=== PATIENT | male | born 1970 | race Caucasian/White ===

== ENCOUNTER 2024-07-19 11:37 | Inpatient (IN) | payer BC, SELFPAY ==
[2024-07-16 16:43] VITALS: BP 128/92
[2024-07-16 16:46] LABS: Glucose - Point of Care 529 mg/dl (70-99)
--- NOTE | 2024-07-16 16:46 | ED.GENMED ---
ED Provider Triage
<Vandana Valdovnios, INFORMATION SYSTEMS AUDITOR - Last Filed: 07/16/24 16:51>
-
Patient seen by provider in Triage?: Seen in Triage
Attestation: A medical screening examination has been initiated by a qualified medical provider. Based on the assessment performed at this time, it has been determined that an emergent medical condition may exist and the patient has been informed
that further medical evaluation and possible additional diagnostic testing may be needed.
HPI: 54 yo male w h/o ulcerative colitis, sleep apnea CPAP, gout, HTN, HLD, prediabetic past 10 days, increased urination, polydypsia. Dr. Annette Muñoz saw for first time 2 months ago, had blood work ordered, just got it done 07/12, got results
3 days ago, couldn't get appointment until next week with PCP
GENERAL: Alert , in no apparent distress
EYE: No visual abnormalities.
NECK: Trachea midline
ENT: No visible abnormalities.
LUNGS: No acute respiratory distress
NEUROLOGICAL: Alert and oriented
SKIN: Skin intact. No visible changes.
MUSCULOSKELETAL: Moving extremities normally
PSYCH: Normal and appropriate interaction.
This is a medical evaluation conducted in person to initiate diagnostic evaluation and provide initial therapeutics. Please see further documentation by the treating clinician.
History of Present Illness
<Vandana Valdovinos, INFORMATION SYSTEMS AUDITOR - Last Filed: 07/16/24 16:51>
General
Chief Complaint: Abnormal Lab Value
Time Seen by Provider: 07/16/24 20:49
<Fernie Castillo DO - Last Filed: 07/16/24 23:27>
History of Present Illness
History of Present Illness:
TIME OF INITIAL ENCOUNTER: 8:55 PM
HPI: The patient has had polyuria, polydipsia, blurred vision and had outpatient blood work that showed elevated blood sugar and A1c was reportedly 10.3. Blood work from approximately 1 year ago showed a blood sugar of 100. He had lost weight in
the past but now more recently gained weight.
EXAM:
GENERAL: Well appearing in no distress, elevated BMI
HEENT: Moist oral mucosa
CARDIOVASCULAR: No murmurs, normal heart rate, regular rhythm, No chest wall tenderness
PULMONARY: No respiratory distress, breath sounds are clear and equal
ABDOMEN: Soft with no peritoneal signs, no tenderness
NEUROLOGIC: Excellent strength all extremities, no coordination deficits
PSYCHIATRIC: Appropriate mental status, normal insight and judgement
EXTREMITIES: Nontender, no edema, moves all extremities equally
SKIN: No rash, no lesions
NUMBER AND COMPLEXITY OF PROBLEMS ADDRESSED AT THE ENCOUNTER
� Chronic conditions affecting care: Sleep apnea, has had elevated LFTs in the past
� Acute Exacerbation and/or Progression of Chronic Illness: This is an acute problem
� Differential Diagnosis includes: Diabetes, DKA
AMOUNT AND/OR COMPLEXITY OF DATA TO BE REVIEWED AND ANALYZED
� I performed an independent evaluation of and my interpretation is:
EKG:
CT:
X-rays:
Laboratory Studies: CBC unremarkable, bicarb is 17, glucose is 563, beta hydroxybutyrate is 4.46, VBG reviewed which shows a pH of 7.3
Other:
� Review of other/old records: I reviewed records, the patient had a cholecystectomy in 2019
� Clinical information was obtained by an independent historian: Spoke to at bedside
� Prescriptions/Medications Considered but not given:
� Further testing considered but not performed:
RISK OF COMPLICATIONS AND/OR MORBIDITY OR MORTALITY OF PATIENT MANAGEMENT
� Social determinants of health affecting care: Lives at home
� Discussion with other providers: Hospitalist for admission as I am concerned about at least borderline DKA
� Escalation of care including admission/observation vs risk of discharge considered: The patient's blood sugars over 560 and he has elevated acetone with low bicarb. I have given him IV fluids and also placed him on insulin
drip.
ANY OTHER UPDATES:
11:10 PM: Patient's blood sugar still remains elevated despite receiving IV fluids and insulin. Continuing to monitor.
Past History
<Vandana Valdovinos INFORMATION SYSTEMS AUDITOR - Last Filed: 07/16/24 16:51>
Past History
ED Past Medical History: Other (Ulcerative colitis, elevated liver enzymes)
Social History
Tobacco: Former smoker
Alcohol: None
Phy Exam
<Fernie Castillo DO - Last Filed: 07/16/24 23:27>
Physical Exam
Physical Exam:
See HPI
Course
<Vandana Valdovinos INFORMATION SYSTEMS AUDITOR - Last Filed: 07/16/24 16:51>
Orders/Labs/Results
Orders:
Orders
07/16/24 17:02
B-Hydroxybutyrate Urgent
Complete Blood Count/With Diff Urgent
Comprehensive Metabolic Panel Urgent
Hgba1c [Glycohemoglobin (HgbA1c)] Urgent
07/16/24 19:45
Urinalysis Reflex To Culture Urgent
Date Specimen was Collected: 07/16/24
Time Specimen was Collected: 19:44
07/16/24 20:51
0.9% Sodium Chloride 1000 ml [Nss] 1,000 ml IV BOLUS
07/16/24 21:09
Venous Blood Gas Urgent
%Oxygen/Room Air: ra
07/16/24 22:03
Admit/Transfer Patient As Directed
Co-Sign Provider:
Level of Care: Observation services
Assign to:: IMU- Intermediate Care
Physician / Group: hospitalist
Diagnosis: DKA
Reason for Hospitalization: DKA,
PRN Pain Medication Management As Directed
May give lesser potent ordered pain med per pt: Yes
preference::
Protocol:: Medication orders for pain may be administered in a
manner that supports deferring to patient preference
when the pt is:
- Requesting an ordered lesser potent pain medication.
Least to most potent pain medications are defined
as: acetaminophen < NSAID < tramadol < opioids
(morphine, oxycodone, hydromorphone).
- Requesting a lesser dose of the same medication IF
ORDERED.
- Requesting a less intrusive route of administration
if both routes are prescribed by the provider (PO <
IV).
07/16/24 22:05
Code Status As Directed
Resuscitation Status: Full Code
07/16/24 22:30
Bedside Glucose- Treatment ONCE
Abnormal Lab Results
07/16/24 07/16/24 07/16/24
16:45 17:02 19:45
MCHC 37.1 H g/dL
(33.0-37.0)
MPV 10.5 H fL
(7.4-10.4)
Abs Immat Gran (auto) 0.1 H 10^3/uL
(0-0.05)
Immature Gran % 0.9 H %
(0-0.5)
VBG pO2
VBG HCO3
Chloride 97 L mmol/L
(98-107)
Carbon Dioxide 17 L mmol/L
(22-30)
BUN 23 H mg/dl
(9-20)
Glucose 563 H* mg/dl
(70-99)
AST 70 H U/L
(17-59)
ALT 114 H U/L
(0-50)
Alkaline Phosphatase 176 H U/L
(38-126)
Urine Ketones 2+ A
(Negative)
Urine Glucose 3+ A
(Negative)
B-Hydroxybutyrate 4.46 H mmol/L
(0.02-0.27)
POC Glucose 529 H* mg/dl
(70-99)
12/06/24
21:09
MCHC
MPV
Abs Immat Gran (auto)
Immature Gran %
VBG pO2 61 H mmHg
(30-50)
VBG HCO3 21.4 L mmol/L
(22-27)
Chloride
Carbon Dioxide
BUN
Glucose
AST
ALT
Alkaline Phosphatase
Urine Ketones
Urine Glucose
B-Hydroxybutyrate
POC Glucose
07/16/24 17:02
07/16/24 17:02
Vital Signs
Initial and Last Documented VS:
Initial Vital Signs
Temp Pulse Resp BP Pulse Ox
36.8 C 85 16 128/92 96
07/16/24 16:43 07/16/24 16:43 07/16/24 16:43 07/16/24 16:43 07/16/24 16:43
Last Documented Vital Signs
Temp Pulse Resp BP Pulse Ox
36.8 C 71 21 116/92 96
07/16/24 16:43 07/16/24 23:00 07/16/24 21:30 07/16/24 23:00 07/16/24 23:00
Lisalt;Fernie Castillo, DO - Last Filed: 07/16/24 23:27>
Orders/Labs/Results
Orders:
Orders
07/16/24 17:02
B-Hydroxybutyrate Urgent
Complete Blood Count/With Diff Urgent
Comprehensive Metabolic Panel Urgent
Hgba1c [Glycohemoglobin (HgbA1c)] Urgent
07/16/24 19:45
Urinalysis Reflex To Culture Urgent
Date Specimen was Collected: 07/16/24
Time Specimen was Collected: 19:44
07/16/24 20:51
0.9% Sodium Chloride 1000 ml [Nss] 1,000 ml IV BOLUS
07/16/24 21:09
Venous Blood Gas Urgent
%Oxygen/Room Air: ra
07/16/24 22:03
Admit/Transfer Patient As Directed
Co-Sign Provider:
Level of Care: Observation services
Assign to:: IMU- Intermediate Care
Physician / Group: hospitalist
Diagnosis: DKA
Reason for Hospitalization: DKA,
PRN Pain Medication Management As Directed
May give lesser potent ordered pain med per pt: Yes
preference::
Protocol:: Medication orders for pain may be administered in a
manner that supports deferring to patient preference
when the pt is:
- Requesting an ordered lesser potent pain medication.
Least to most potent pain medications are defined
as: acetaminophen < NSAID < tramadol < opioids
(morphine, oxycodone, hydromorphone).
- Requesting a lesser dose of the same medication IF
ORDERED.
- Requesting a less intrusive route of administration
if both routes are prescribed by the provider (PO <
IV).
07/16/24 22:05
Code Status As Directed
Resuscitation Status: Full Code
07/16/24 22:30
Bedside Glucose- Treatment ONCE
Abnormal Lab Results
07/16/24 07/16/24 07/16/24
16:45 17:02 19:45
MCHC 37.1 H g/dL
(33.0-37.0)
MPV 10.5 H fL
(7.4-10.4)
Abs Immat Gran (auto) 0.1 H 10^3/uL
(0-0.05)
Immature Gran % 0.9 H %
(0-0.5)
VBG pO2
VBG HCO3
Chloride 97 L mmol/L
(98-107)
Carbon Dioxide 17 L mmol/L
(22-30)
BUN 23 H mg/dl
(9-20)
Glucose 563 H* mg/dl
(70-99)
AST 70 H U/L
(17-59)
ALT 114 H U/L
(0-50)
Alkaline Phosphatase 176 H U/L
(38-126)
Urine Ketones 2+ A
(Negative)
Urine Glucose 3+ A
(Negative)
B-Hydroxybutyrate 4.46 H mmol/L
(0.02-0.27)
POC Glucose 529 H* mg/dl
(70-99)
07/16/24
21:09
MCHC
MPV
Abs Immat Gran (auto)
Immature Gran %
VBG pO2 61 H mmHg
(30-50)
VBG HCO3 21.4 L mmol/L
(22-27)
Chloride
Carbon Dioxide
BUN
Glucose
AST
ALT
Alkaline Phosphatase
Urine Ketones
Urine Glucose
B-Hydroxybutyrate
POC Glucose
07/16/24 17:02
07/16/24 17:02
Vital Signs
Initial and Last Documented VS:
Initial Vital Signs
Temp Pulse Resp BP Pulse Ox
36.8 C 85 16 128/92 96
07/16/24 16:43 07/16/24 16:43 07/16/24 16:43 07/16/24 16:43 07/16/24 16:43
Last Documented Vital Signs
Temp Pulse Resp BP Pulse Ox
36.8 C 71 21 116/92 96
07/16/24 16:43 07/16/24 23:00 07/16/24 21:30 07/16/24 23:00 07/16/24 23:00
<Fernie Castillo DO - Last Filed: 07/16/24 23:27>
*Critical Care Note
Total Time (30-74mins, 75-104mins- exclusive of procedures): 45min
comment:
The patient's bicarb and beta hydroxybutyrate are both abnormal. However pH is 7.37. May have at least borderline DKA�placed on insulin drip after IV fluids given. Patient was closely observed throughout his stay in the Emergency Department.
ED Attending Note
<Vandana Valdovinos INFORMATION SYSTEMS AUDITOR - Last Filed: 07/16/24 16:51>
-
Portions of this chart may have been created with voice recognition software.� Occasional wrong word or��sound alike� substitutions may have occurred due to the inherent limitations of voice recognition software.
Discharge Plan
Departure
Patient Disposition: Admit
Date of Disposition: 07/16/24
Time of Disposition: 21:01
Presentation/result/management discussed w/ accepting MD/DO: Hospitalist
Discharge Problem:
Diabetic ketoacidosis
Interventions
Interventions:
*Risk Screen - Suicide Last Done: 07/16/24 20:17
*General Assessment Last Done: 07/16/24 20:17
*Neglect/Abuse Screening Last Done: 07/16/24 20:17
[2024-07-16 17:19] LABS: % Basophils 1.1 % (0-2); % Eosinophils 0.9 % (0-6); % Immature Granulocytes 0.9 % (0-0.5); % Lymphocytes 34.4 % (20.5-51.1); % Monocytes 5.4 % (1.7-9.3); % Neutrophils 57.3 % (42.2-75.2); Absolute Basophils 0.1 10^3/uL (0-0.2); Absolute Eosinophils 0.1 10^3/uL (0-0.7); Absolute Immature Granulocytes 0.1 10^3/uL (0-0.05); Absolute Lymphocytes 2.6 10^3/uL (1.2-3.4); Absolute Monocytes 0.4 10^3/uL (0.1-0.6); Absolute Neutrophils 4.4 10^3/uL (1.4-6.5); Hemoglobin 16.7 g/dL (13.0-18.0); Mean Corp Hgb Conc. 37.1 g/dL (33.0-37.0); Mean Corpuscular Hgb 30.8 pg (27.0-31.0); Mean Platelet Volume 10.5 fL (7.4-10.4); Nucleated Red Blood Cells % 0 % (-); Platelet Count 294 10^3/uL (130-400); Red Blood Cell Count 5.42 10^6/uL (4.70-6.10); White Blood Cell Count 7.6 10^3/uL (4.8-10.8)
[2024-07-16 17:34] LABS: ALT (SGPT) 114 U/L (0-50); AST (SGOT) 70 U/L (17-59); Albumin 4.9 g/dl (3.5-5.0); Alkaline Phosphatase 176 U/L (38-126); Blood Urea Nitrogen 23 mg/dl (9-20); Calcium 10.2 mg/dl (8.4-10.2); Carbon Dioxide 17 mmol/L (22-30); Chloride 97 mmol/L (98-107); Glucose 563 mg/dl (70-99); Potassium 4.7 mmol/L (3.5-5.1); Sodium 135 mmol/L (135-145); Total Bilirubin 0.7 mg/dl (0.2-1.3); Total Protein 7.4 g/dl (6.3-8.2); eGFR > 60.00
[2024-07-16 17:51] LABS: B-Hydroxybutyrate 4.46 mmol/L (0.02-0.27)
[2024-07-16 19:51] LABS: Urine Albumin Negative (Neg - Trace); Urine Bilirubin Negative (Negative); Urine Character Clear (Clear); Urine Color Yellow; Urine Glucose 3+ (Negative); Urine Ketone 2+ (Negative); Urine Leukocyte Negative (Negative); Urine Nitrite Negative (Negative); Urine Occult Blood Negative (Negative); Urine Urobilinogen Negative (Neg - 1+)
[2024-07-16 20:28] VITALS: BP 125/92
[2024-07-16 21:00] VITALS: BP 122/87
[2024-07-16] MEDS: NSS 1000 IV (21:00)
[2024-07-16 21:16] LABS: Venous Blood Gas B.E. -3.4 mmol/L (-4 to +4); Venous Blood Gas HCO3 21.4 mmol/L (22-27); Venous Blood Gas O2 Sat % 92.7 %; Venous Blood Gas pCO2 37 mmHg (35-48); Venous Blood Gas pH 7.37 (7.32-7.43); Venous Blood Gas pO2 61 mmHg (30-50)
--- NOTE | 2024-07-16 21:56 | HPS.HSE ---
Family Physician
-
Family Physician: Elvin Bryant
Chief Complaint
-
Abnormal blood work
History of Present Illness
This is a 53-year-old with past medical history significant for hypertension, MIAN on CPAP, obesity, presenting to the emergency department with multiple symptoms after having blood work showing elevated blood glucose about 4 days ago with a
diagnosis of diabetes.
Patient reports that he has been prediabetes for a long time. He did lose weight and had his blood sugar under control with the aid of with controlled medications and strict diet. However he had recent weight gain and developed symptoms including
polyuria, polydipsia, weakness, fatigue, cramps over the last few days. He reported that he had a blood work done about 4 days ago and was told that he was diabetic by his PMD but was unable to follow-up since then. Today the patient felt very
weak and was unable to tolerate additional with time still he sees his PMD so he decided come to the ED.
Patient denies any recent cough cold fevers chills. He denies any sick contacts. He denies any new medication changes.
In the emergency department the patient was afebrile, blood pressure was stable at 115/90 with a pulse of 74. Oxygen saturation was 98%. CBC was unremarkable. Chemistries notable for normal BUN/creatinine bicarb was 17 with anion gap of 21,
beta-hydroxybutyrate was elevated at 4.4, UA was positive for ketones and glucose. His pH was 7.37. Patient started on insulin drip in the ED.
Medical History
Past Medical History
Past Medical History: Reports HTN and Other (MIAN on CPAP)
Past Surgical History: Reports Cholecystectomy
Social History
Tobacco: Non-smoker
Alcohol: Binge drinker
Drug: None
Living: With Family
Employment: Employed
Family History
Family History: Not pertinent
Allergies / Home Medications
Allergies reflects when Allergies were last updated in [employer].
Home Medications with original date entered in [employer]
Allergy/Medication List:
Allergies
Allergy/AdvReac Type Severity Reaction Status Date / Time
No Known Drug Allergies Allergy - Verified 04/14/20 08:08
poison arianna extract Allergy Rash Verified 04/14/20 08:08
Home Medications
allopurinol 100 mg tablet 200 mg PO HS 04/13/20
vitamin B complex 1 tab PO DAILY 04/13/20
cholecalciferol (vitamin D3) 25 mcg (1,000 unit) tablet 25 mcg PO DAILY 07/16/24
fenofibrate micronized 67 mg capsule 67 mg PO DAILY 07/16/24
metoprolol tartrate 25 mg tablet 25 mg PO BID 07/16/24
therapeutic multivitamin 1 tab PO DAILY 07/16/24
Review of Systems
-
Constitutional: Reports Fatigue
EENT: Reports No Symptoms
Respiratory: Reports No Symptoms
Cardiac: Reports No Symptoms
Abdomen/GI: Reports No Symptoms
: Reports No Symptoms
Musculoskeletal: Reports No Symptoms
Skin: Reports No Symptoms
Neurological: Reports No Symptoms
Endocrine: Reports Polyuria and Polydipsia
Hematologic/Lymphatic: Reports No Symptoms
Psych: Reports No Symptoms
Physical Exam
Vital Signs
Vital Signs
Temp Pulse Resp BP Pulse Ox
98.2 F 74 24 125/92 96
07/16/24 16:43 07/16/24 20:30 07/16/24 20:28 07/16/24 20:28 07/16/24 20:30
Physical Exam
General: Well Developed, Well Nourished, No Apparent Distress and Comfortable
HEENT: NormoCephalic, Anicteric, Moist mucous membranes and Atraumatic
Respiratory: Clear
Cardiac: S1/S2 and Regular Rhythm
GI: Soft, Non Tender, Non Distended and Normal Bowel Sounds
Musculoskeletal: No Clubbing, No Cyanosis and No Edema
Skin: Warm
Neuro: AO x 3
Psych: Calm
Laboratory Results
-
07/16/24 17:02
07/16/24 17:02
Laboratory Results
Total Bilirubin 0.7 mg/dl (0.2-1.3) 07/16/24 17:02
AST 70 U/L (17-59) H 07/16/24 17:02
ALT 114 U/L (0-50) H 07/16/24 17:02
Alkaline Phosphatase 176 U/L (38-126) H 07/16/24 17:02
Data Reviewed
-
Lab Data: Labs Reviewed by me
Old Records: Reviewed
Impression/Plan
-
IMPRESSION:
New onset diabetes with DKA
PLAN:
1. DKA - Mild to moderate DKA in patient with new onset diabetes. Gap 21. HD stable with normal bun/cr. bHB 4.
- admit to imu
- started on insulin gtt. Will continue on insulin gtt per protocol.
- fingersticks q 1 hours, chem q 4 hours
- a1c pending
- diabetic education
- oral medications to be determined in AM. Suspect metformin + sitagliptin to start with addition of GLP agonist
- check lipid panel
2. HTN
- stable, continue metoprolol
3. MIAN
- cpap 10 hs
DVT PPX - lovenox sq
Code statu - full code
[2024-07-16 22:31] VITALS: BP 113/70
[2024-07-16] MEDS: NOVOLIN R INSULIN INFUSION 100 IV (22:46)
[2024-07-16 23:00] VITALS: BP 116/92
[2024-07-16 23:18] LABS: Glucose - Point of Care 518 mg/dl (70-99)
[2024-07-17] VITALS (21 sets, daily range): BP systolic 95–136; BP diastolic 52–99; PULSE 89; BMI 33.0
[2024-07-17 00:35] LABS: Glucose - Point of Care 339 mg/dl (70-99)
[2024-07-17 01:54] LABS: Glucose - Point of Care 309 mg/dl (70-99)
[2024-07-17] MEDS: NSS with KCL 20 MEQ 1000 IV (02:16)
[2024-07-17 03:18] LABS: Glucose - Point of Care 245 mg/dl (70-99)
--- NOTE | 2024-07-17 03:30 | PTCARENOTE ---
Received patient from ED. Admitted with DKA diagnosis. On insulin gtt per DKA protocol. Alert and oriented. Denies pain.discomfort. Heart rhythm sinus. Blood pressure normotensive. Currently on room air. Lungs sound diminished. NPO. Voiding in
urinal without issue. Skin as documented, Discussed plan of care. Vital signs stable at this time.
[2024-07-17 03:42] LABS: Hemoglobin 14.6 g/dL (13.0-18.0); Mean Corp Hgb Conc. 36.5 g/dL (33.0-37.0); Mean Corpuscular Hgb 30.7 pg (27.0-31.0); Mean Corpuscular Volume 84.2 fL (80.0-94.0); Mean Platelet Volume 10.3 fL (7.4-10.4); Platelet Count 248 10^3/uL (130-400); Red Blood Cell Count 4.75 10^6/uL (4.70-6.10); White Blood Cell Count 8.5 10^3/uL (4.8-10.8)
[2024-07-17 04:05] LABS: Blood Urea Nitrogen 20 mg/dl (9-20); Calcium 9.2 mg/dl (8.4-10.2); Carbon Dioxide 26 mmol/L (22-30); Chloride 103 mmol/L (98-107); Estimated Creatinine Clearance 118 ml/min; Glucose 217 mg/dl (70-99); HDL Cholesterol 21 mg/dl; Potassium 3.5 mmol/L (3.5-5.1); Sodium 140 mmol/L (135-145); Total Cholesterol 169 mg/dl (50-199); Triglyceride 501 mg/dl (10-149); eGFR > 60.00
[2024-07-17 04:14] LABS: Glucose - Point of Care 196 mg/dl (70-99)
[2024-07-17] MEDS: D5/0.45%NSS with KCL 20 MEQ 1000 IV (04:24)
[2024-07-17 04:34] LABS: LDL Cholesterol, Direct 72 mg/dl
[2024-07-17 05:15] LABS: Glucose - Point of Care 199 mg/dl (70-99)
[2024-07-17 06:13] LABS: Glucose - Point of Care 258 mg/dl (70-99)
--- NOTE | 2024-07-17 07:15 | PTCARENOTE ---
report received. insulin gtt @4units/hr. aaox3. vss. nsr. d51/2w/20k @ 150cc/hr. pt updated on plan of care. will monitor.
[2024-07-17 07:30] LABS: Glucose - Point of Care 255 mg/dl (70-99)
[2024-07-17] MEDS: TRICOR 48 MG PO (08:21)
[2024-07-17] MEDS: VITAMIN D3 (cholecalciferol) 25 MCG PO (08:21)
[2024-07-17] MEDS: LOPRESSOR 25 MG PO ×2 (08:22→20:34)
[2024-07-17 08:36] LABS: Glucose - Point of Care 252 mg/dl (70-99)
--- NOTE | 2024-07-17 08:58 | W.PN.HOSP.TC ---
Today's Communication/Plan
-
renew insulin
follow BMP
diabetic education
Assessment / Plan
Assessment / Plan
pt is a 54 year old male
new onset type 2 diabetes mellitus presenting as DKA--AGAP 21--beta-hydroxybutyrate=4.4H--cont insulin drip, follow Q4H BMP, once AGAP closed x 2, can transition to SC insulin and start diet--will need diabetic education--HGB A1C pending--weight
loss and exercise will be important
HLD--triglycerides 500, total chol 169, LDL 72--will need tricor started
essential HTN--continue metoprolol
MIAN --cont CPAP
DVT PPX - lovenox sq
code status -- FULL CODE
Anticipated Discharge: 24 - 48 hours
Subjective/Interval History
-
Date of Service: July 17, 2024
pt feeling a bit better--started some DM education for him
Objective Data
-
Labs:
Laboratory Results
07/17/24 07/17/24 07/17/24
03:17 08:32 12:00
WBC 8.5
Hgb 14.6
Hct 40.0
Plt Count 248
Sodium 140 Pending Pending
Potassium 3.5 D Pending Pending
Chloride 103 Pending Pending
Carbon Dioxide 26 Pending Pending
BUN 20 Pending Pending
Creatinine 0.9 Pending Pending
Glucose 217 H Pending Pending
Calcium 9.2 Pending Pending
07/17/24 07/17/24
16:00 20:00
WBC
Hgb
Hct
Plt Count
Sodium Pending Pending
Potassium Pending Pending
Chloride Pending Pending
Carbon Dioxide Pending Pending
BUN Pending Pending
Creatinine Pending Pending
Glucose Pending Pending
Calcium Pending Pending
Vital Signs:
max temp for 24 hours
07/17/24
04:00
Temp 98.8 F
Vital Signs
Temp Pulse Resp BP Pulse Ox
97.6 F 60 19 113/79 95
07/17/24 07:30 07/17/24 06:30 07/17/24 06:30 07/17/24 06:00 07/17/24 06:30
I&O
07/16/24 07/17/24 07/18/24
06:59 06:59 06:59
Intake Total 611 / 611
Balance 611 / 611
Review of Systems
-
All other systems: Reviewed and negative
Physical Exam
-
General: Well Developed, Well Nourished, No Apparent Distress and Obese
HEENT: Normocephalic and Atraumatic; Negative Oxygen
Respiratory: Clear to Auscultation; Negative Wheezes, Rhonchi or Crackles
Cardiac: Regular Rhythm and S1/S2; Negative Murmur
GI: Soft, Nontender, Nondistended and Normal Bowel Sounds
Musculoskeletal: No Clubbing, No Cyanosis and No Edema
Skin: Warm and Dry
Neuro: Awake and Alert
Psych: Calm
[2024-07-17 09:35] LABS: Blood Urea Nitrogen 18 mg/dl (9-20); Calcium 8.6 mg/dl (8.4-10.2); Carbon Dioxide 26 mmol/L (22-30); Chloride 104 mmol/L (98-107); Estimated Creatinine Clearance > 125 ml/min; Glucose 231 mg/dl (70-99); Potassium 3.4 mmol/L (3.5-5.1); Sodium 139 mmol/L (135-145); eGFR > 60.00
[2024-07-17 09:43] LABS: Glucose - Point of Care 251 mg/dl (70-99)
[2024-07-17 10:49] LABS: Glycohemoglobin (HgbA1c) 10.6 % (4.0-5.6)
[2024-07-17] MEDS: LANTUS 0.15 UNITS SC (10:54)
[2024-07-17 11:01] LABS: Glucose - Point of Care 226 mg/dl (70-99)
[2024-07-17] MEDS: NOVOLOG FLEXPEN 10 UNITS SC ×2 (11:58→16:38)
[2024-07-17] MEDS: NOVOLOG FLEXPEN-LOW RESISTANCE 1 UNITS SC (11:59)
[2024-07-17 12:09] LABS: Glucose - Point of Care 188 mg/dl (70-99)
[2024-07-17] MEDS: D5/0.45%NSS with KCL 20 MEQ IV (12:42)
--- NOTE | 2024-07-17 13:13 | PTCARENOTE ---
insulin gtt off per protocol. bmp sent. family and pt updated on plan of care.
[2024-07-17 13:38] LABS: Blood Urea Nitrogen 17 mg/dl (9-20); Calcium 8.8 mg/dl (8.4-10.2); Carbon Dioxide 26 mmol/L (22-30); Chloride 104 mmol/L (98-107); Estimated Creatinine Clearance 106 ml/min; Glucose 253 mg/dl (70-99); Potassium 3.8 mmol/L (3.5-5.1); Sodium 137 mmol/L (135-145); eGFR > 60.00
--- NOTE | 2024-07-17 14:58 | CM ---
Chart reviewed. Patient here for diabetic ketoacidosis. Patient was alert, awake and oriented. He lives in a [place] home with his and three children. One of them will provide transportation, once he is discharged from the hospital. Has an active
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 Denied any +SDOHs. Drives. He is independent. He does not own any DME. CM explained Observation status letter. Patient verbalized understanding and signed. Pt given copy and original placed on patient's chart.
ANTICIPATED DISCHARGE PLAN: Home with and children when medically cleared.
[2024-07-17 16:33] LABS: Blood Urea Nitrogen 21 mg/dl (9-20); Calcium 8.6 mg/dl (8.4-10.2); Carbon Dioxide 25 mmol/L (22-30); Chloride 102 mmol/L (98-107); Estimated Creatinine Clearance 106 ml/min; Glucose 355 mg/dl (70-99); Potassium 4.5 mmol/L (3.5-5.1); Sodium 134 mmol/L (135-145); eGFR > 60.00
[2024-07-17] MEDS: NOVOLOG FLEXPEN-LOW RESISTANCE 5 UNITS SC (16:39)
[2024-07-17 16:48] LABS: Glucose - Point of Care 359 mg/dl (70-99)
[2024-07-17] MEDS: LOVENOX 40 MG SC (17:30)
[2024-07-17] MEDS: TYLENOL 650 MG PO (17:37)
[2024-07-17 19:50] LABS: Glucose - Point of Care 488 mg/dl (70-99)
--- NOTE | 2024-07-17 20:00 | PTCARENOTE ---
Received patient AAOx3, following commands, denying pain, walking to bathroom to void. Normal sinus 60s-70s, BP stable, normothermic. 95% on room air. Abdomen soft, round, obese, positive bowel sounds. Bruising on left arm. PIVs patent, WNL. Blood
sugar checked, 449. SMOKING PIPES CLEANER notified, insulin gtt restarted per order. Blood sugar checks ongoing per critical care glycemic protocol. Call licona within reach.
[2024-07-17 20:11] LABS: Glucose 449 mg/dl (70-99)
[2024-07-17] MEDS: NOVOLIN R 10 UNITS IV (20:15)
[2024-07-17] MEDS: NOVOLIN R INSULIN INFUSION 100 IV (21:23)
[2024-07-17] MEDS: LANTUS SC (21:26)
[2024-07-17 21:28] LABS: Glucose - Point of Care 267 mg/dl (70-99)
[2024-07-17] MEDS: ZYLOPRIM 200 MG PO (21:42)
[2024-07-17] MEDS: LANTUS 0.18 UNITS SC (21:48)
[2024-07-17 22:29] LABS: Glucose - Point of Care 252 mg/dl (70-99)
[2024-07-17 23:28] LABS: Glucose - Point of Care 147 mg/dl (70-99)
[2024-07-18] VITALS (10 sets, daily range): BP systolic 102–134; BP diastolic 41–84; BMI 33.5
--- NOTE | 2024-07-18 00:04 | PTCARENOTE ---
BG 126, COMMERCIAL CREDIT ANALYST notified, infusion off and rechecking BG 0300. Otherwise patient assessment unchanged from previous.
[2024-07-18 00:14] LABS: Glucose - Point of Care 126 mg/dl (70-99)
--- NOTE | 2024-07-18 03:14 | W.PN.UPDATE ---
Update Note
Progress Note Update
1929: BS = 488, bolus 10 units insulin, restarted insulin drip and upgraded patient back to IMU, evening Lantus increased to 18 given at 2200, Drip stopped at midnight: BS 126, repeat BS at 0300 was 155 = 2 units of NovoLog coverage. Transfer back
to med/surg. �Continue with ordered insulin coverage.�
[2024-07-18 03:17] LABS: Glucose - Point of Care 155 mg/dl (70-99)
[2024-07-18] MEDS: NOVOLOG FLEXPEN 2 UNITS SC (03:20)
[2024-07-18 03:38] LABS: Hematocrit 39.6 % (39.0-52.0); Hemoglobin 14.5 g/dL (13.0-18.0); Mean Corp Hgb Conc. 36.6 g/dL (33.0-37.0); Mean Corpuscular Hgb 31.5 pg (27.0-31.0); Mean Corpuscular Volume 86.1 fL (80.0-94.0); Mean Platelet Volume 10.2 fL (7.4-10.4); Platelet Count 199 10^3/uL (130-400); Red Cell Dist. Width 12.3 % (11.5-14.5); White Blood Cell Count 6.5 10^3/uL (4.8-10.8)
[2024-07-18 03:56] LABS: Blood Urea Nitrogen 17 mg/dl (9-20); Calcium 8.8 mg/dl (8.4-10.2); Carbon Dioxide 19 mmol/L (22-30); Chloride 110 mmol/L (98-107); Estimated Creatinine Clearance > 125 ml/min; Glucose 151 mg/dl (70-99); Magnesium 1.9 mg/dl (1.6-2.3); Potassium 3.5 mmol/L (3.5-5.1); Sodium 139 mmol/L (135-145); eGFR > 60.00
[2024-07-18 07:38] LABS: Glucose - Point of Care 188 mg/dl (70-99)
--- NOTE | 2024-07-18 08:37 | W.PN.HOSP.TC ---
Today's Communication/Plan
-
check 9AM blood draw
cont lantus and novolog
add metformin
consult DM RESP THER in AM
Assessment / Plan
Assessment / Plan
pt is a 54 year old male
new onset type 2 diabetes mellitus presenting as DKA--AGAP 21, beta-hydroxybutyrate=4.4H--AGAP closed x 2 and transitioned to lantus 15u BID, novolog 10u AC on 07/17 afternoon--then sugars went up and placed back on insulin drip overnight, now off
and on lantus 18u BID, novolog 10u AC and just added metformin 500mg BID, HGB A1C 10.6--off insulin drip--will need diabetic education, consult DM RESP THER for Friday--weight loss and exercise will be important--explained need for yearly foot and eye
exams
HLD--triglycerides 500, total chol 169, LDL 72--tricor started
essential HTN--continue metoprolol, consideration for esau-I if BP allows
MIAN --cont CPAP
DVT PPX - lovenox sq
code status -- FULL CODE
Anticipated Discharge: 24 - 48 hours
Subjective/Interval History
-
Date of Service: July 18, 2024
pt frustrated with his situation, confused about diet, etc
Objective Data
-
Labs:
Laboratory Results
07/18/24 07/18/24
03:13 09:00
WBC 6.5
Hgb 14.5
Hct 39.6
Plt Count 199
Sodium 139 Pending
Potassium 3.5 Pending
Chloride 110 H Pending
Carbon Dioxide 19 L Pending
BUN 17 Pending
Creatinine 0.8 Pending
Glucose 151 H Pending
Calcium 8.8 Pending
Vital Signs:
max temp for 24 hours
07/18/24
03:00
Temp 97.8 F
Vital Signs
Temp Pulse Resp BP Pulse Ox
97.5 F 62 17 113/81 95
07/18/24 07:32 07/18/24 06:00 07/18/24 06:00 07/18/24 06:00 07/17/24 21:50
I&O
07/17/24 07/18/24 07/19/24
06:59 06:59 06:59
Intake Total 611 / 765 640.5 / 640.5
Balance 611 / 765 640.5 / 640.5
Review of Systems
-
All other systems: Reviewed and negative
Physical Exam
-
General: Well Developed, Well Nourished and No Apparent Distress
HEENT: Normocephalic and Atraumatic; Negative Oxygen
Respiratory: Clear to Auscultation; Negative Wheezes or Rhonchi
Cardiac: Regular Rhythm and S1/S2; Negative Murmur
GI: Soft, Nontender, Nondistended and Normal Bowel Sounds
Musculoskeletal: No Clubbing, No Cyanosis and No Edema
Neuro: Awake and Alert
Psych: Calm
[2024-07-18] MEDS: NOVOLOG FLEXPEN 10 UNITS SC ×2 (08:47→12:37)
[2024-07-18] MEDS: NOVOLOG FLEXPEN-LOW RESISTANCE 1 UNITS SC (08:48)
[2024-07-18] MEDS: TRICOR 48 MG PO (08:50)
[2024-07-18] MEDS: VITAMIN D3 (cholecalciferol) 25 MCG PO (08:50)
[2024-07-18] MEDS: LOPRESSOR 25 MG PO ×2 (08:50→20:41)
[2024-07-18] MEDS: LANTUS 0.18 UNITS SC (08:57)
--- NOTE | 2024-07-18 09:04 | PTCARENOTE ---
0700 seen in a room ; AAO x3 BP 134/82 MAP 99 SR 88;
Blood sugar before breakfast 188; Novolog 10 untis and 1 unit per sliding scale ( 11 units total ) Lantus 18 units adm
BMP send result pending
[2024-07-18 10:35] LABS: Blood Urea Nitrogen 18 mg/dl (9-20); Calcium 8.8 mg/dl (8.4-10.2); Carbon Dioxide 22 mmol/L (22-30); Chloride 105 mmol/L (98-107); Estimated Creatinine Clearance 107 ml/min; Glucose 317 mg/dl (70-99); Sodium 136 mmol/L (135-145); eGFR > 60.00
--- NOTE | 2024-07-18 11:51 | PTCARENOTE ---
Transfer
Patient transfer to room 316 via w/c. Patient notified his family regarding transfer. Report given. personal belonging including pt's own C/PAP transfer with pt
[2024-07-18 12:24] LABS: Glucose - Point of Care 370 mg/dl (70-99)
[2024-07-18] MEDS: NOVOLOG FLEXPEN-LOW RESISTANCE 5 UNITS SC (12:37)
--- NOTE | 2024-07-18 12:52 | W.PN.UPDATE ---
Update Note
Progress Note Update
moved pt to high dose SSI
increased mealtime novolog to 13u
increased lantus to 22u BID
[2024-07-18] MEDS: LOVENOX 40 MG SC (17:21)
[2024-07-18] MEDS: NOVOLOG FLEXPEN 13 UNITS SC (17:24)
[2024-07-18] MEDS: NOVOLOG FLEXPEN-HIGH RESISTANCE 7 UNITS SC (17:24)
[2024-07-18] MEDS: GLUCOPHAGE 500 MG PO (17:27)
[2024-07-18 17:31] LABS: Glucose - Point of Care 257 mg/dl (70-99)
[2024-07-18 20:39] LABS: Glucose - Point of Care 278 mg/dl (70-99)
[2024-07-18] MEDS: LANTUS 0.22 UNITS SC (20:42)
[2024-07-18] MEDS: ZYLOPRIM 200 MG PO (20:42)
[2024-07-19 06:00] VITALS: BMI 33.5
[2024-07-19 06:52] VITALS: BP 104/67
[2024-07-19 07:35] LABS: Glucose - Point of Care 232 mg/dl (70-99)
[2024-07-19] MEDS: NOVOLOG FLEXPEN-HIGH RESISTANCE 4 UNITS SC ×2 (08:03→13:10)
--- NOTE | 2024-07-19 08:03 | PN.DE.MGMTRT ---
Insulin Management
- -
07/19/2024: Diabetes management Consult
54 year old male with new onset T2DM, presented to the ER with sx of found to be in DKA--AGAP 21, beta-hydroxybutyrate --4.4H. pt was initiated on DKA protocol. GAP closed x 2 and transitioned off to Lantus 15u BID, NovoLog 10u AC on 07/17
afternoon--then sugars went up and placed back on insulin drip on 07/18. he transitioned off on 07/18 to Lantus, NovoLog and Metformin 500mg BID, A1C 10.6%, Cr 0.8, eGFR >60.
Pt awake, alert, sitting up in bed, offers no complaints, able to discuss DM Dx and mgt.
Reports remote hx of pre-diabetes, states he was started on Metformin and Wegovy for weight loss and had lost ~80lbs but gained it back when he stopped taking it due to loss of insurance coverage.
He is noted for persistent Hyperglycemia, 07/18 premeal range 188 to 330, requiring additional corrective insulin, HS blood sugar was 278, FBG 232 this AM.
Will increase Lantus from 22 units to 25 units BID and NovoLog from 13 units to 15 units AC.
Cont Metformin and moderate corrective insulin with meals.
Discussed and emphasized importance of strict life style modification including weight loss and physical activity with regular exercises
Provided Rx for insulin- Humalog and Basaglar as well as pen needles all sent to his pharmacy.
All questions and concerns were addressed and answered to their satisfaction. Pt was provided a name of local Endo at his request.
Updates given to pt's Nurse and Hospitalist and dietary consult placed.
Diabetes History
- -
Type of Diabetes: 2 requiring insulin
Pre-Admission Diabetes Regimen
07/18/24 07/18/24 07/19/24
08:37 09:42 06:45
Creatinine Cancelled 1.0 Cancelled
Lab Results
Hemoglobin A1c 10.6 % (4.0-5.6) H 07/16/24 17:02
Insulin Pump Settings
IP Diabetes Regimen
07/18/24 07/18/24 07/18/24
08:37 09:42 12:22
Glucose Cancelled 317 H
POC Glucose 370 H
07/18/24 07/18/24 07/19/24
17:20 20:37 06:45
Glucose Cancelled
POC Glucose 257 H 278 H
07/19/24
07:34
Glucose
POC Glucose 232 H
Meal type: Breakfast
Amount consumed: 100%
Patient Education
[2024-07-19] MEDS: NOVOLOG FLEXPEN 13 UNITS SC (08:04)
[2024-07-19] MEDS: GLUCOPHAGE 500 MG PO (08:04)
[2024-07-19] MEDS: LOPRESSOR 25 MG PO (08:04)
[2024-07-19] MEDS: TRICOR 48 MG PO (08:05)
[2024-07-19] MEDS: VITAMIN D3 (cholecalciferol) 25 MCG PO (08:05)
[2024-07-19] MEDS: LANTUS 0.22 UNITS SC (08:05)
[2024-07-19 11:36] LABS: Glucose - Point of Care 239 mg/dl (70-99)
--- NOTE | 2024-07-19 12:36 | PN.DE ---
Diabetes Education
- -
This is a 54 year old male with new onset T2DM, A1C of 10.6%
Met with Mr. Del Rio and his -Ly at bedside for monitor and insulin instructions. He has been provided with the Contour Next Ez glucometer. Reviewed proper testing technique for obtaining a blood glucose, new testing pattern given ACHS and
expected results as noted in take home education booklet. Discussed action of both rapid acting and long acting insulins as well as symptoms and treatment of hypoglycemia. Aware for meals to check blood glucose, inject NovoLog (short acting insulin)
in stomach and eat in 10-20 minutes and Long acting insulin in outer thigh, rotating sites. Aware to store insulin pens that are not in use in the refrigerator. Instructions with good return demonstration using the glucometer and insulin pen were
noted and result of 245 mg/dl 2 hrs after breakfast. Discussed importance of checking blood sugars 4x/day to assess food/medication effect on his BS, reducing CHO intake, being active and losing weight. Provided information and handout on outpt
education classes. Provided Rx for test strips, lancets for the Contour Next Ez glucometer testing 4x/day, insulin- Humalog and Basaglar as well as pen needles all sent yo his pharmacy.
All questions and concerns were addressed and answered to their satisfaction. Pt was provided a name of local Endo at his request.
updates given to pt's Nurse and Hospitalist and dietary consult placed.
--- NOTE | 2024-07-19 12:51 | W.PN.HOSP.TC ---
Today's Communication/Plan
-
dc
Assessment / Plan
Assessment / Plan
54yo M with PMHx of gout came with symptomatic hyperglycemia and managed for DKA, improved and started on Insulin regimen. He was successfully tought how to do blood glucose monitoring and insulin injections and has established PCP folow up next day
upon d/c. He was counseled on yearly retinal and podiatry design as well and kidney function and proteiuria monitoring. Patient and bedside verbalized understanding. Medically stable for d/c
A/P:
#DM most likely type 2 with unspecified complications
#HLD
#DKA
on insulin now
outpatient follow up by PCP as blood glucose improved
#Essential HTN
#Gout
#MIAN
cont home meds and CPAP
DVT ppx Lovenox
Full code
I have spent at least 38min reviewing chart, test results, communication with consultants and direct patient care
Anticipated Discharge: Today
Subjective/Interval History
-
Date of Service: July 19, 2024
Objective Data
-
Labs:
Laboratory Results
07/19/24 07/19/24
06:45 07:52
Sodium Cancelled Pending
Potassium Cancelled Pending
Chloride Cancelled Pending
Carbon Dioxide Cancelled Pending
BUN Cancelled Pending
Creatinine Cancelled Pending
Glucose Cancelled Pending
Calcium Cancelled Pending
Vital Signs:
Vital Signs
Temp Pulse Resp BP Pulse Ox
97.9 F 66 20 104/67 95
07/19/24 06:52 07/19/24 06:52 07/19/24 06:52 07/19/24 06:52 07/19/24 06:52
I&O
07/18/24 07/19/24 07/20/24
06:59 06:59 06:59
Intake Total 640.5 / 640.5 480 / 480
Balance 640.5 / 640.5 480 / 480
Review of Systems
-
History Source: Patient
All other systems: Reviewed and negative
Physical Exam
-
General: No Apparent Distress
HEENT: Normocephalic
Respiratory: Clear to Auscultation
Cardiac: Regular Rhythm
GI: Soft, Nontender and Nondistended
Genito-urinary: No Costovertebral Tender
Musculoskeletal: No Clubbing, No Cyanosis and No Edema
Neuro: Awake, Alert, Oriented and AO x 3
Psych: Calm
--- NOTE | 2024-07-19 12:53 | W.DCSUMMARY ---
Discharge Summary
Discharge Data
Date of Admission: 07/19/24
Date of Discharge: 07/19/24
-
Pending Results: No
Hospital Course
54yo M with PMHx of gout came with symptomatic hyperglycemia and managed for DKA, improved and started on Insulin regimen. He was successfully tought how to do blood glucose monitoring and insulin injections and has established PCP folow up next day
upon d/c. He was counseled on yearly retinal and podiatry design as well and kidney function and proteiuria monitoring. Patient and bedside verbalized understanding. Medically stable for d/c
I have spent at least 38min reviewing chart, test results, communication with consultants and direct patient care
Patient was managed for:
#DM most likely type 2 with unspecified complications
#HLD
#DKA
#Essential HTN
#Gout
#MIAN
Discharge Plan
-
Discharge Diagnosis/Procedures: New onset type 2 diabetes mellitus presenting as a diabetic ketoacidosis, hyperlipidemia, essential hypertension, obstructive sleep apnea
Condition: Good
Diet: Diabetic, Carb Controlled
Activity: As tolerated
Driving Restrictions: As prior to admission
Bathing Restrictions: None
Other Services: VN
Referrals:
Elvin Bryant, DO [Family Provider] - in less than 1 week
Prescriptions:
New
(DME) Contour Next Test Strips Strip
Qty: 130 0RF
Rx Instructions:
Pt Testing 4 times a day
(DME) lancets [Microlet Lancet] Misc
Qty: 130 0RF
Rx Instructions:
Pt testing 4 times a day
metformin 500 mg Tablet Extended Release 24 Hr
500 mg PO BID Qty: 60 0RF
Rx Instructions:
Take Twice a day with breakfast and Dinner
insulin lispro [Humalog KwikPen Insulin] 100 unit/mL Insulin Pen
15 unit SC AC Qty: 5 0RF
Rx Instructions:
Take 15 units with each meal
insulin glargine [Lantus Solostar U-100 Insulin] 100 unit/mL (3 mL) Insulin Pen
25 unit SC BID Qty: 5 0RF
Rx Instructions:
Take Twice a day morning and bedtime
(DME) pen needle, diabetic [BD Ultra-Fine [place] Pen Needle] 32 gauge x 5/32' Needle
Qty: 200 0RF
Rx Instructions:
Pt taking Insulin 4 times a day
No Action
B Complex Tablet Extended Release
1 tab PO DAILY
allopurinol 100 MG tablet
200 mg PO HS
fenofibrate micronized 67 mg capsule
67 mg PO DAILY
metoprolol tartrate 25 mg tablet
25 mg PO BID
Theragen Tablet
1 tab PO DAILY
cholecalciferol (vitamin D3) 25 mcg (1,000 unit) Tablet
25 mcg PO DAILY
Discharge Date and Time
Print Language: MARSHALLESE
[2024-07-19] MEDS: NOVOLOG FLEXPEN 15 UNITS SC (13:11)
[2024-07-19 14:15] VITALS: BP 110/60
== END 2024-07-19 14:38 | disposition home or self-care (01) | DRG 639 ==
LOC: 3 WEST ACU 11:37
PROVIDERS: Internal Medicine; Registered Nurse; ADMITTING PHYSICIAN Internal Medicine; ATTENDING PHYSICIAN Internal Medicine; EMERGENCY PHYSICIAN Emergency Medicine; FAMILY PHYSICIAN Family Medicine
DX: E11.10 Type 2 diabetes mellitus with ketoacidosis without coma (principal); G47.33 Obstructive sleep apnea (adult) (pediatric); E78.5 Hyperlipidemia, unspecified; I10 Essential (primary) hypertension; M10.9 Gout, unspecified; E66.9 Obesity, unspecified; Z87.891 Personal history of nicotine dependence; Z68.33 Body mass index [BMI] 33.0-33.9, adult
CPT/HCPCS: 80048; 80053; 80061; 81003; 82010; 82805; 82947; 82962; 83036; 83721; 83735; 85025; 85027; 94660; 96361; 96365; 96366; 96375; 99291